=== PATIENT | male | born 1970 | race Two or more races ===

== ENCOUNTER 2021-05-13 09:37 | Emergency (ER) | payer OTHER ==
[2021-05-13 09:42] VITALS: BP 158/81; PULSE 87; TEMP 97.8; BMI 27.2
[2021-05-13] MEDS ORDERED: ceFAZolin SODIUM 1 GM VIAL IM ONE (11:10)
[2021-05-13] MEDS ORDERED: DIPHTH,PERTUSS(ACELL),TET 0.5 ML DISP.SYRIN IM ONE ×2 (11:10→11:20)
[2021-05-13] MEDS ORDERED: ceFAZolin SODIUM 1 GM VIAL ONE (11:20)
== END 2021-05-13 11:54 ==
LOC: JER 09:37
PROC: 0HQFXZZ Repair Right Hand Skin, External Approach (ICD-10-PCS; principal; 2021-05-13)
PROC: 3E02329 Introduction of Other Anti-infective into Muscle, Percutaneous Approach (ICD-10-PCS; 2021-05-13)
PROC: 3E0234Z Introduction of Serum, Toxoid and Vaccine into Muscle, Percutaneous Approach (ICD-10-PCS; 2021-05-13)
DX: S61.316A Laceration without foreign body of right little finger with damage to nail, initial encounter (principal); W01.0XXA Fall on same level from slipping, tripping and stumbling without subsequent striking against object, initial encounter; X50.0XXA Overexertion from strenuous movement or load, initial encounter; Y92.39 Other specified sports and athletic area as the place of occurrence of the external cause
CPT/HCPCS: 12002-25; 73130-TC-RT-FY; 90471; 90715; 96372; 99284-25